=== PATIENT | female | born 1990 | race Caucasian/White ===

== ENCOUNTER 2021-06-03 13:38 | Outpatient (REF) | payer SELFPAY ==
[2021-06-03 14:18] LABS: COVID-19 Test Positive (Negative); IDNOW Serial# 55D5AD1C
== END 2021-06-03 13:39 | disposition home or self-care (01) ==
LOC: HO.LAB 13:38
PROVIDERS: Visit Provider Internal Medicine
DX: Z20.822 Contact with and (suspected) exposure to COVID-19 (principal)
CPT/HCPCS: 36415; 87635; C9803

== ENCOUNTER 2023-01-02 18:30 | Emergency (ER) | payer OTHER, SELFPAY ==
[2023-01-02 19:10] VITALS: BP 118/62; PULSE 71; RESP 16; TEMP 36.7; BMI 20.2
--- NOTE | 2023-01-02 19:11 | ED_ITS ---
HPI - General Adult General Chief complaint: General Medical Stated complaint: blood in urination/ chest pain/ SOB/ Back pain Time Seen by Provider: 01/03/23 03:02 Source: patient Mode of arrival: ambulatory Limitations: no limitations History of Present Illness HPI narrative: Patient complaining of diffuse lower abdominal pain vaginal pain clear discharge had only 1 day menses Last month checked the was negative complaining of nausea no vomiting no fever Related Data Previous Rx's Medication Instructions Recorded ondansetron 4 mg disintegrating 4 mg PO Q6-8H PRN nausea and 01/03/23 tablet vomiting #7 tabs Allergies Allergy/AdvReac Type Severity Reaction Status Date / Time No Known Allergies Allergy Unverified 02/16/20 18:02 [No Known Allergies*] Review of Systems Review of Systems: Yes all other systems are reviewed and are negative [facility] Social History Social History Advance Directives: No Advance Directives Information Provided: No Physical Exam ED Vital Signs: Vital Signs - 24 hr 01/02/23 19:10 Temperature 98.1 F Pulse Rate 71 Respiratory Rate 16 Blood Pressure 118/62 BMI result Body Mass Index 20.2 Appearance: Alert. Oriented X3. No acute distress. ENT: Pharynx normal. Oral Mucosa moist Neck: Normal inspection. Neck supple. CVS: Normal heart rate and rhythm. Pulses normal. Respiratory: No respiratory distress. Equal air entry bilateral, no wheezing/rales/rhonchi Abdomen: Soft , mild suprapubic tenderness no rebound tenderness or guarding Bowel sounds are present, no mass palpable, no CVA tenderness Skin: Skin warm and dry. Normal skin color. Normal skin turgor. Extremities: No lower extremity edema. No calf tenderness Neuro: Oriented X 3. No motor deficit. Course Course Course Narrative: This is a rapid medical exam: Additional HPI, ROS, PE not included below will be deferred to primary provider. Patient is a 32-year-old [place]ene[place]in-speaking female presenting to the emergency department with complaint of lower abdominal pain, called [facility], states period only lasted one day this month, also complains of back pain. She also reports shortness of breath, rapid heart rate, and dizziness. [facility] referred her to the ED. Noted hematuria 2-3 days ago. Denies fevers. Re ports this am reports blood-tinged yellow vaginal discharge. Took a test at home which was negative, denies recent unprotected sex. Plan: UA, labs Medications Administered Discontinued Medications Generic Name Dose Route Start Last Admin Trade Name Erick PRN Reason Stop Dose Admin Ondansetron HCl 4 mg 01/03/23 03:13 01/03/23 03:21 Ondansetron Odt 4 Mg Tab.Guillermo SAUCEDAU 01/03/23 03:14 4 mg ONCE ONE Administration Medical Decision Making Medical Decision Making [facility] Narrative: Patient's negative nonspecific pain labs stable discharge patient home ibuprofen for pain and Zofran for nausea Lab Data [facility] Lab Attestation statement: I reviewed the patient's lab results. 01/02/23 21:16 01/02/23 21:16 Labs: Lab Results 01/02/23 01/02/23 01/03/23 Range/Units 21:16 21:16 02:41 WBC 6.5 (4.8-10.8) X10*3/uL RBC 4.34 (4.20-5.50) X10*6/uL Hgb 13.2 (12.0-16.0) g/dl Hct 38.8 (37.0-47.0) % MCV 89.4 (80.0-98.0) fL MCH 30.4 (27.0-33.0) pg MCHC 34.0 (31.0-35.0) g/dl RDW 12.0 (11.0-16.0) % Plt Count 237 (160-400) X10*3/uL MPV 9.4 (9.4-12.3) fL Immature Gran % (Auto) 0.2 (0.0-0.4) % Neut % (Auto) 46.3 (45-73) % Lymph % (Auto) 44.0 H (20-40) % [place] % (Auto) 7.1 (2-11) % Eos % (Auto) 1.5 (0-4) % Baso % (Auto) 0.9 (0-2) % Lymph # (Auto) 2.9 (1.2-4.9) X10*3/uL [place] # (Auto) 0.5 (0.1-1.2) X10*3/uL Eos # (Auto) 0.1 (0.0-0.4) X10*3/uL Baso # (Auto) 0.1 (0.0-0.2) X10*3/uL Abs Immat Gran (auto) 0.01 (0.00-0.03) X10*3/uL Absolute Neuts (auto) 3.0 (2.0-8.3) x10*3/uL Absolute Nucleated RBC 0.000 (0.0-0.012) X10*3/uL Nucleated RBC % (auto) 0.0 (0.0-0.2) /100WBC Sodium 139 (135-145) mmol/L Potassium 3.9 (3.3-5.1) mmol/L Chloride 106 (96-108) mmol/L Carbon Dioxide 25 (22-29) mmol/L Anion Gap 12 (12-20) BUN 10 (9-16) mg/dL Creatinine 0.69 (0.5-1.4) mg/dL Estim Creat Clear Calc 89.9 Estimated GFR > 60 Random Glucose 89 (60-115) mg/dL Calcium 9.5 (8.4-10.2) mg/dL Total Bilirubin 0.3 (0.0-1.0) mg/dL AST 17 (5-31) U/L ALT 12 (0-31) U/L Alkaline Phosphatase 55 (39-117) U/L Total Protein 6.9 (6.5-8.0) g/dL Albumin 4.2 (3.5-5.0) g/dL Beta HCG, Quant < 2 mIU/mL Urine Color Yellow Urine Appearance Clear Urine pH 6.0 (5.0-9.0) Ur Specific [place] 1.020 (1.005-1.025) Urine Protein Negative (Neg-Trace) mg/dL Urine Glucose (UA) Negative (Negative) mg/dL Urine Ketones Negative (Negative) mg/dL Urine Blood Negative (Negative) Urine Nitrite Negative (Negative) Ur Leukocyte Esterase Negative (Negative) Discharge Plan Discharge Clinical Impression: Abdominal pain Patient Disposition: Home, Self-Care Instructions: Abdominal Pain (ED) Additional Instructions: Your blood is negative for Meds for nausea as prescribed Prescriptions: New ondansetron 4 mg tablet,disintegrating 4 mg PO Q6-8H PRN (Reason: nausea and vomiting) Qty: 7 0RF Interventions: ED Discharge Assessment Last Done: 01/03/23 04:28 Discharge Date/Time: 01/03/23 04:28
[2023-01-02 21:21] LABS: MANUAL DIFF FLAG NO
[2023-01-02 21:32] LABS: Basophils Absolute Auto 0.1 X10*3/uL (0.0-0.2); Basophils Percent Auto 0.9 % (0-2); Eosinophils Absolute Auto 0.1 X10*3/uL (0.0-0.4); Eosinophils Percent Auto 1.5 % (0-4); Hematocrit 38.8 % (37.0-47.0); Hemoglobin 13.2 g/dl (12.0-16.0); Imm Gran Abs Auto 0.01 X10*3/uL (0.00-0.03); Imm Gran Pct Auto 0.2 % (0.0-0.4); Lymphocytes Absolute Auto 2.9 X10*3/uL (1.2-4.9); Mean Corpuscular Hemoglobin 30.4 pg (27.0-33.0); Mean Corpuscular Volume 89.4 fL (80.0-98.0); Mean Platelet Volume 9.4 fL (9.4-12.3); Monocytes Absolute Auto 0.5 X10*3/uL (0.1-1.2); Monocytes Percent Auto 7.1 % (2-11); Neutrophils Percent Auto 46.3 % (45-73); Platelet Count 237 X10*3/uL (160-400); Red Blood Count 4.34 X10*6/uL (4.20-5.50); White Blood Count 6.5 X10*3/uL (4.8-10.8)
[2023-01-02 21:47] LABS: Alanine Aminotransferase 12 U/L (0-31); Albumin Level 4.2 g/dL (3.5-5.0); Alkaline Phosphatase 55 U/L (39-117); Anion Gap 12 (12-20); Bilirubin Total 0.3 mg/dL (0.0-1.0); Blood Urea Nitrogen 10 mg/dL (9-16); Calcium 9.5 mg/dL (8.4-10.2); Carbon Dioxide 25 mmol/L (22-29); Chloride 106 mmol/L (96-108); Creatinine Clr Calc Pharmacy 89.9; Estimated Glomerular Filt Rate > 60; Glucose Random 89 mg/dL (60-115); Potassium 3.9 mmol/L (3.3-5.1); Sodium 139 mmol/L (135-145); Total Protein 6.9 g/dL (6.5-8.0)
[2023-01-02 21:50] LABS: HCG Quantitative < 2 mIU/mL
[2023-01-02 22:08] LABS: Aspartate Amino Transferase 17 U/L (5-31)
[2023-01-03] MEDS: Ondansetron ODT 4 MG TAB.RAPDIS TRANSLINGU (03:21)
[2023-01-03 03:22] LABS: Appearance Urine Clear; Color Urine Yellow; Glucose Urine UA Negative (Negative); Leukocyte Esterase Urine Negative (Negative); Nitrite Urine Negative (Negative); Urine Blood Negative (Negative); Urine Ketones Negative (Negative); Urine Protein Negative (Neg-Trace)
== END 2023-01-03 04:28 | disposition home or self-care (01) ==
PROVIDERS: Registered Nurse Emergency; Emergency Provider Internal Medicine
DX: R10.30 Lower abdominal pain, unspecified (principal); R11.0 Nausea
CPT/HCPCS: 36415; 80053; 81003; 84702; 85025; 99282; 99283

== ENCOUNTER 2023-03-18 03:27 | Emergency (ER) | payer OTHER, SELFPAY ==
--- NOTE | ~2023-03-18 | XR_ITS ---
EXAMINATION: XR CHEST CLINICAL INFORMATION: Cough, chest pain, shortness of breath COMPARISON: 12/28/2013 TECHNIQUE: Frontal view of the chest was obtained. FINDINGS: The lungs are clear with no focal consolidation. No evidence of pneumothorax, pulmonary edema, or pleural effusions. The cardiomediastinal silhouette is unremarkable. No acute osseous findings. XR/XR chest 1V IMPRESSION: No acute cardiopulmonary findings.
[2023-03-18 03:39] VITALS: BP 118/56; PULSE 77; RESP 18; TEMP 36.6; O2SAT 100; BMI 20.8
[2023-03-18 04:09] LABS: COVID-19 Test Negative (Negative); IDNOW Serial# 08D9AD1C; IDNOW Serial# BCCEAD1C; Influenza A Negative (Negative); Influenza B2 Negative (Negative)
[2023-03-18 06:14] VITALS: BP 106/50; PULSE 64; RESP 18; TEMP 36.9; O2SAT 98
--- NOTE | 2023-03-18 06:25 | ED_ITS ---
HPI - General Adult General Chief complaint: Upper Respiratory Symptoms Stated complaint: Flu Like symptoms, trouble breathing Time Seen by Provider: 03/18/23 06:24 Source: patient Mode of arrival: ambulatory Limitations: no limitations History of Present Illness HPI narrative: Patient is a 33-year-old female presenting to the emergency department with complaint of nonproductive cough, nasal congestion, fever with T-max of 102?, headache, sore throat since Thursday. States that she use her inhaler frequently yesterday. Reports intermittent chest pains overnight which she feels was related to her cough. Has used [id number] cold medicine with little relief. Last took Tylenol at 3:00 a.m.. Denies any abdominal pain. Denies any dysuria, frequency or other urinary symptoms. Denies current chest pain. Reports headache has been moderate and intermittent. Denies headache worst at onset or worst headache of life. Denies any visual changes. complaint: Fever, shortness of breath Onset (ago): day(s) Location: chest Radiation: non-radiation Severity: moderate Quality: aching Pain Consistency: intermittent Relieving factors: none Exacerbating factors: none Associated symptoms: cough, fever/chills and headaches Treatments prior to arrival: cold therapy and other (Tylenol) Related Data Previous Rx's Medication Instructions Recorded ondansetron 4 mg disintegrating 4 mg PO Q6-8H PRN nausea and 01/03/23 tablet vomiting #7 tabs Allergies Allergy/AdvReac Type Severity Reaction Status Date / Time No Known Allergies Allergy Verified 03/18/23 03:43 [No Known Allergies*] Review of Systems 2 Review of Systems: As per HPI. Yes all other systems are reviewed and are negative Constitutional: Constitutional: Reports as per HPI [facility] Social History Social History Advance Directives: No Advance Directives Information Provided: No Physical Exam ED Vital Signs: Vital Signs - 24 hr 03/18/23 03:39 03/18/23 06:14 Temperature 97.8 F 98.5 F Pulse Rate 77 64 Respiratory Rate 18 18 Blood Pressure 118/56 L 106/50 L Pulse Oximetry 100 98 Oxygen Delivery Method Room Air Room Air BMI result Body Mass Index 20.8 Vital signs have been reviewed and appear to be correct. Blood pressure normal. Heart rate normal. Respiratory rate normal. Temperature normal. Oxygen saturation normal. Const General: cooperative, healthy appearing and no acute distress Orientation/consciousness: oriented to person, oriented to place, oriented to time and patient oriented x3 Limitations: no limitations HENMT Head: Yes normocephalic and Yes atraumatic Ears: external ears normal, TM's normal bilaterally and EAC's normal General nose exam: Normal external nose present, Normal nasal mucous membranes and turbinates present and Normal septum present Face and sinus: Yes sinuses nontender and Yes face symmetric Mouth: oropharynx normal and moist mucous membranes Throat: Yes uvula midline and Yes posterior oropharynx abnormal (Erythema, edema, no exudate) Eyes Pupils: Equal, round and reactive pupils present Neck Neck: Yes normal visual inspection and Yes supple Lymphatic: no lymphadenopathy noted Resp Effort & Inspection: normal respiratory effort and able to speak in complete sentences Auscultation: clear to auscultation bilaterally Cardio Rate: regular rate Rhythm: regular rhythm Heart sounds: S1 normal heart sound present and S2 normal heart sound present GI Palpation (GI): Soft to palpation and nontender Auscultation: normoactive bowel sounds General: Yes no CVA tenderness Back/Spine/Pelvis Back: no CVA tenderness Skin General skin exam: elasticity normal and turgor normal Neuro General: oriented to person, oriented to place, oriented to time, patient oriented x3, moves all extremities, no focal motor deficits and CN's II-XI intact bilaterally Cranial nerves: Yes Equal, round and reactive pupils present Cognition (Neuro): normal cognition Extrem General: Yes full ROM, Yes no pedal edema and Yes no calf tenderness Psych Mental Status: mental status grossly normal Affect: normal affect Thought process: Normal thought process present Medical Decision Making Medical Decision Making MDM Narrative: Patient is a 33-year-old female presenting to the emergency department with complaint of nonproductive cough, nasal congestion, fever with T-max of 102?, headache, sore throat since Thursday. On exam patient is awake, A+Ox3, VS WNL, afebrile, nontoxic-appearing, normal neurological exam without focal deficits, physical exam findings as above. Given reported symptoms and physical exam findings, initial differential includes viral illness, COVID, flu, strep pharyngitis, bronchitis, pneumonia. Feel ACS less likely but will obtain EKG and troponin. Swabs for flu and COVID both negative. X-ray chest notable for no acute abnormalities. My interpretation is in agreement with the radiologist's interpretation. Will check for strep, obtain EKG, troponin, basic labs and reassess. Labs unremarkable, troponin negative, strep negative. All results discussed with patient and all questions answered. Discussed with patient that symptoms are likely related to viral illness. Advised patient to ensure adequate rest, adequate fluid intake, can use [id number] decongestants as well as nasal saline spray. Return precautions discussed at bedside. Patient instructed follow-up with primary care provider. Patient verbalized understanding of and agreement with plan. Differential Diagnosis Differential Diagnoses: The differential diagnosis associated with the presentation includes As per [facility]. Admission/Observation Consideration of admission/observation: Escalation of care including admission/observation considered Given complaint of chest pain considered admission for possible ACS Lab Data [facility] Lab Attestation statement: I reviewed the patient's lab results. As per MDM. 03/18/23 06:59 03/18/23 06:59 Labs: Lab Results 03/18/23 03/18/23 03/18/23 Range/Units 03:46 06:59 07:04 WBC 7.1 (4.8-10.8) X10*3/uL RBC 4.41 (4.20-5.50) X10*6/uL Hgb 13.0 (12.0-16.0) g/dl Hct 38.9 (37.0-47.0) % MCV 88.2 (80.0-98.0) fL MCH 29.5 (27.0-33.0) pg MCHC 33.4 (31.0-35.0) g/dl RDW 12.5 (11.0-16.0) % Plt Count 241 (160-400) X10*3/uL MPV 9.3 L (9.4-12.3) fL Immature Gran % (Auto) 0.3 (0.0-0.4) % Neut % (Auto) 69.5 (45-73) % Lymph % (Auto) 20.4 (20-40) % [place] % (Auto) 7.6 (2-11) % Eos % (Auto) 1.6 (0-4) % Baso % (Auto) 0.6 (0-2) % Lymph # (Auto) 1.4 (1.2-4.9) X10*3/uL [place] # (Auto) 0.5 (0.1-1.2) X10*3/uL Eos # (Auto) 0.1 (0.0-0.4) X10*3/uL Baso # (Auto) 0.0 (0.0-0.2) X10*3/uL Abs Immat Gran (auto) 0.02 (0.00-0.03) X10*3/uL Absolute Neuts (auto) 4.9 (2.0-8.3) x10*3/uL Absolute Nucleated RBC 0.000 (0.0-0.012) X10*3/uL Nucleated RBC % (auto) 0.0 (0.0-0.2) /100WBC Sodium 137 (135-145) mmol/L Potassium 4.4 (3.3-5.1) mmol/L Chloride 104 (96-108) mmol/L Carbon Dioxide 24 (22-29) mmol/L Anion Gap 13 (12-20) BUN 13 (9-16) mg/dL Creatinine 0.67 (0.5-1.4) mg/dL Estim Creat Clear Calc 91.8 Estimated GFR > 60 Random Glucose 80 (60-115) mg/dL Calcium 9.6 (8.4-10.2) mg/dL Troponin I High Sens < 2.7 (<3.5-17.0) ng/L COVID-19 (SAUL) Negative (Negative) COVID-19 Clin Com See Note Influenza Type A (DHRUV) Negative (Negative) Influenza Type B (DHRUV) Negative (Negative) Influenza A & B Note See Note S. pyogenes GrpA DHRUV Negative (Negative) Independent Interpretation I performed an independent interpretation of an: EKG and Plain X-Ray Interpretation: EKG: Normal sinus rhythm, rate 78 bpm, normal OR interval, no evidence of STEMI No acute abnormalities on CXR Radiology Impression Discussion of test interpretation with radiology: I have reviewed the radiologist's reading. Radiologist Impression: XR/XR chest 1V IMPRESSION: No acute cardiopulmonary findings. External Record Review External record reviewed: Inpatient record, Office record and Outpatient record Discharge Plan Discharge Clinical Impression: Viral upper respiratory infection Patient Disposition: Home, Self-Care Instructions: Upper Respiratory Infection (DC), Viral Syndrome (ED) Additional Instructions: You were evaluated in the emergency department today for sore throat, nasal congestion and cough. Your Covid, flu, and strep tests were all negative. Your labs were reassuring. Your symptoms are likely related to a viral illness which will resolve on its own with time and rest. You should ensure adequate fluid intake, and can use Tylenol 650 mg or ibuprofen 600 mg every 6 hours as needed for fever or discomfort. Please follow-up with your primary care provider this week. Return to the emergency department if you develop chest pain, worsening shortness of breath, difficulty swallowing, fever 100.4? F or greater or any other concerning symptoms. Prescriptions: No Action ondansetron 4 mg tablet,disintegrating 4 mg PO Q6-8H PRN (Reason: nausea and vomiting) Qty: 7 0RF
--- NOTE | 2023-03-18 06:27 | ECG_ITS ---
Test Reason : CHEST PAIN Blood Pressure : / mmHG Vent. Rate : 078 BPM Atrial Rate : 078 BPM P-R Int : 152 ms QRS Dur : 072 ms QT Int : 402 ms P-R-T Axes : 068 080 051 degrees QTc Int : 458 ms Normal sinus rhythm with sinus arrhythmia RSR' or QR pattern in V1 suggests right ventricular conduction delay Nonspecific T wave abnormality Borderline ECG When compared with ECG of 28-DEC-2013 10:09, No significant change was found Referred By: Lanette Collins Electronically Signed By:ABELARDO CHAUHAN MD
[2023-03-18 07:08] LABS: MANUAL DIFF FLAG NO
[2023-03-18 07:09] LABS: Basophils Percent Auto 0.6 % (0-2); Eosinophils Absolute Auto 0.1 X10*3/uL (0.0-0.4); Eosinophils Percent Auto 1.6 % (0-4); Hematocrit 38.9 % (37.0-47.0); Imm Gran Abs Auto 0.02 X10*3/uL (0.00-0.03); Imm Gran Pct Auto 0.3 % (0.0-0.4); Lymphocytes Absolute Auto 1.4 X10*3/uL (1.2-4.9); Lymphocytes Percent Auto 20.4 % (20-40); Mean Corpuscular HGB Conc 33.4 g/dl (31.0-35.0); Mean Corpuscular Hemoglobin 29.5 pg (27.0-33.0); Mean Corpuscular Volume 88.2 fL (80.0-98.0); Mean Platelet Volume 9.3 fL (9.4-12.3); Monocytes Absolute Auto 0.5 X10*3/uL (0.1-1.2); Monocytes Percent Auto 7.6 % (2-11); Neutrophils Absolute Auto 4.9 x10*3/uL (2.0-8.3); Neutrophils Percent Auto 69.5 % (45-73); Platelet Count 241 X10*3/uL (160-400); Red Blood Count 4.41 X10*6/uL (4.20-5.50); Red Cell Distribution Width 12.5 % (11.0-16.0); White Blood Count 7.1 X10*3/uL (4.8-10.8)
[2023-03-18 07:20] LABS: Anion Gap 13 (12-20); Blood Urea Nitrogen 13 mg/dL (9-16); Calcium 9.6 mg/dL (8.4-10.2); Carbon Dioxide 24 mmol/L (22-29); Chloride 104 mmol/L (96-108); Creatinine Clr Calc Pharmacy 91.8; Estimated Glomerular Filt Rate > 60; Glucose Random 80 mg/dL (60-115); Potassium 4.4 mmol/L (3.3-5.1); Sodium 137 mmol/L (135-145)
[2023-03-18 07:26] LABS: IDNOW Serial# 08D9AD1C; Strep A Nucleic Acid Negative (Negative)
[2023-03-18 07:29] LABS: Troponin-I High Sensitivity < 2.7 ng/L (<3.5-17.0)
== END 2023-03-18 08:38 | disposition home or self-care (01) ==
PROVIDERS: Registered Nurse Emergency; Emergency Provider Emergency Medicine Emergency Medical Services; PCP Internal Medicine
DX: B34.9 Viral infection, unspecified (principal); R05.9 Cough, unspecified; R50.9 Fever, unspecified; R06.02 Shortness of breath; Z11.52 Encounter for screening for COVID-19; Z20.822 Contact with and (suspected) exposure to COVID-19; Z79.899 Other long term (current) drug therapy
CPT/HCPCS: 71045; 80048; 84484; 85025; 87502; 87635; 87651; 93005; 99283; 99284

== ENCOUNTER 2024-06-27 10:30 | Emergency (ER) | payer OTHER, SELFPAY ==
--- NOTE | ~2024-06-27 | XR_ITS ---
EXAMINATION: XR CHEST CLINICAL INFORMATION: shortness of breath / chest pain COMPARISON: 03/08/2023. TECHNIQUE: 2 views of the chest were obtained. FINDINGS: The cardiac, hilar, and mediastinal contours are normal. The lungs are clear bilaterally. There is no pneumothorax or pleural effusion. There is a granuloma in the lateral right middle lobe. There is no focal osseous or soft tissue abnormality. XR/XR chest 2V IMPRESSION: No active pulmonary disease. Electronically signed by: Geoffrey Michel MD 06/27/2024 12:24 PM [facility]
[2024-06-27 11:16] VITALS: BP 129/77; PULSE 110; RESP 16; TEMP 36.8; O2SAT 100; BMI 20.8
--- NOTE | 2024-06-27 11:16 | ED_ITS ---
HPI - General Adult General Chief complaint: Upper Respiratory Symptoms Stated complaint: cant't breath Time Seen by Provider: 06/27/24 13:30 Source: patient Mode of arrival: ambulatory Limitations: no limitations History of Present Illness ED Provider: Pam Adan PA-C HPI narrative: Patient is a 34 year old assigned female at with no reported medical history presenting to the emergency department today with a cough, fever, shortness of breath, and chest pain. Patient states that over the last 2 weeks she has had a cough, fever, chills, shortness of breath, and chest pain. Patient denies any dizziness, lightheadedness, abdominal pain, nausea, vomiting, blurry vision, double vision, loss of vision, back pain, night sweats, pain with urination, increased urinary frequency, increased urinary urgency, blood in her urine or stool, syncope or a near syncopal episode, recent trauma or falls, bowel incontinence, bladder incontinence, or any other complaints at this time. Onset (ago): week(s) (2) Relieving factors: none Exacerbating factors: none Associated symptoms: chest pain, cough, fever/chills and shortness of breath Treatments prior to arrival: none Related Data Previous Rx's ?Medication ?Instructions ?Recorded ondansetron 4 mg disintegrating 4 mg PO Q6-8H PRN nausea and 01/03/23 tablet vomiting #7 tabs Allergies Allergy/AdvReac Type Severity Reaction Status Date / Time No Known Allergies Allergy Verified 06/27/24 11:16 [No Known Allergies*] Review of Systems 2 Constitutional: Constitutional: Reports no additional constitutional complaints, Reports chills, Reports fever(s) and Denies night sweats Eyes: Eyes: Reports no additional eye complaints, Denies blurry vision, Denies change in vision, Denies diplopia, Denies eye discharge, Denies loss of vision and Denies eye pain ENT: Denies dizziness Cardiovascular: Cardiovascular: Reports no additional cardiovascular complaints, Reports chest pain, Denies lightheadedness, Denies Loss of Consciousness and Reports dyspnea Respiratory: Respiratory: Reports no additional respiratory complaints, Reports cough and Reports dyspnea Gastrointestinal: Gastrointestinal: Reports no additional gastrointestinal complaints, Denies abdominal pain, Denies melena, Denies hematochezia, Denies change in bowel habits and Denies change in stool character Genitourinary: Genitourinary: Denies hematuria, Denies urinary frequency, Denies dysuria, Denies urinary incontinence, Denies urinary hesitancy and Denies urinary urgency Musculoskeletal: Musculoskeletal: Reports no additional musculoskeletal complaints, Denies numbness and Denies tingling Neurologic: Denies dizziness, Denies loss of vision, Denies numbness and Denies tingling Psychiatric: Psychiatric: Reports no additional psychiatric complaints Endocrine: Endocrine: Reports no additional endocrine complaints Hematologic/Lymphatic: Hematologic/Lymphatic: Reports no additional hematologic/lymphatic complaints Allergic/Immunologic: Allergic/Immunologic: Reports no additional allergic/immunologic complaints PMFSH Past Medical History Attestation statement: The following information was validated with the patient. Source: old records reviewed and nursing notes reviewed Social History Social History Advance Directives: No Advance Directives Information Provided: Yes Do you have a plan to hurt others: No Plan Physical Exam ED Vital Signs: Vital Signs - 24 hr 06/27/24 11:16 Temperature 98.3 F Pulse Rate 110 H Respiratory Rate 16 Blood Pressure 129/77 Pulse Oximetry 100 Oxygen Delivery Method Room Air BMI result Body Mass Index 20.8 Const General: cooperative, no acute distress, alert and awake Nutritional Appearance: well nourished Orientation/consciousness: patient oriented x3 Limitations: no limitations HENMT Head: Yes normal to inspection and Yes atraumatic Ears: hearing grossly normal bilaterally and external ears normal General nose exam: Normal external nose present, no nasal discharge noted and no epistaxis Face and sinus: Yes normal facial exam, No abrasion and No laceration Mouth: Normal oral and palatal mucosa present, no drooling and no muffled voice Eyes General: appearance normal, both eyes and all related structures Periorbital: periorbital findings normal Eyelids: Yes eyelids normal Conjunctivae: conjunctivae normal Pupils: Equal, round and reactive pupils present EOM: EOMs intact bilaterally Neck Neck: Yes normal visual inspection, Yes full ROM and Yes no lymphadenopathy Chest Chest palpation & inspection: normal inspection of the chest Resp Effort & Inspection: normal respiratory effort and able to speak in complete sentences GI Inspection: Yes normal to inspection Neuro General: patient oriented x3 and moves all extremities Cranial nerves: Yes Equal, round and reactive pupils present Cognition (Neuro): normal cognition Extrem General: Yes normal to inspection, Yes full ROM and Yes capillary refill normal Psych Appearance: grossly normal Mental Status: mental status grossly normal Affect: normal affect Attitude: cooperative Thought process: Normal thought process present Thought content: Normal thought content present Insight: Good insight present (Psych) Course Course Course Narrative: RME performed by Pam Adan PA-C. Patient is a 34 year old assigned female at presenting to the emergency department with a cough, chest pain, and feeling generally unwell over the last 2 weeks. Detailed physical exam and review of systems are deferred to the ditch inspector. EKG, labs, imaging, and swabs ordered. Patient placed back in the waiting room pending room availability and results. Medical Decision Making Medical Decision Making MDM Narrative: Patient is a 34 year old assigned female at with no reported medical history presenting to the emergency department today with a cough, fever, shortness of breath, and chest pain. Patient's physical exam was unremarkable. Patient's blood work was unremarkable. Patient's EKG was unremarkable. Patient's chest x-ray showed no acute process. I explained my physical exam findings as well as all test results to the patient. I answered all questions asked by the patient. I stressed the importance of the patient taking her medication as directed (either prescribed or as the over the counter packaging recommends). I stressed the importance of the patient following up with her primary care provider. I stressed the importance of the patient returning to the emergency department immediately if her symptoms were to worsen or if she were to develop any dizziness, shortness of breath, difficulty breathing, chest pain, blurry vision, loss of vision, nausea, vomiting, abdominal pain, fever, chills, back pain, or any other complaints. Patient verbalized agreement and understanding with this treatment plan and discharge. Differential Diagnosis Differential Diagnoses: The differential diagnosis associated with the presentation includes Influenza Cough Viral illness Chest pain Atypical chest pain Admission/Observation Consideration of admission/observation: Escalation of care including admission/observation considered Patient would have been admitted to the hospital had her work up had any findings where hospital admission was appropriate and her clinical presentation warranted hospital admission. Lab Data [facility] Lab Attestation statement: I reviewed the patient's lab results. My interpretation of these results are in the [facility] Rationale portion of this note. 06/27/24 11:56 06/27/24 11:56 Labs: Lab Results 06/27/24 Range/Units 11:56 WBC 4.2 L (4.8-10.8) X10*3/uL RBC 4.83 (4.20-5.50) X10*6/uL Hgb 14.3 (12.0-16.0) g/dl Hct 42.8 (37.0-47.0) % MCV 88.6 (80.0-98.0) fL MCH 29.6 (27.0-33.0) pg MCHC 33.4 (31.0-35.0) g/dl RDW 13.1 (11.0-16.0) % Plt Count 192 (160-400) X10*3/uL MPV 9.3 L (9.4-12.3) fL Immature Gran % (Auto) 0.2 (0.0-0.4) % Neut % (Auto) 57.3 (45-73) % Lymph % (Auto) 29.3 (20-40) % [place] % (Auto) 12.7 H (2-11) % Eos % (Auto) 0.0 (0-4) % Baso % (Auto) 0.5 (0-2) % Lymph # (Auto) 1.2 (1.2-4.9) X10*3/uL [place] # (Auto) 0.5 (0.1-1.2) X10*3/uL Eos # (Auto) 0.0 (0.0-0.4) X10*3/uL Baso # (Auto) 0.0 (0.0-0.2) X10*3/uL Abs Immat Gran (auto) 0.01 (0.00-0.03) X10*3/uL Absolute Neuts (auto) 2.4 (2.0-8.3) x10*3/uL Absolute Nucleated RBC 0.000 (0.0-0.012) X10*3/uL Nucleated RBC % (auto) 0.0 (0.0-0.2) /100WBC Sodium 139 (135-145) mmol/L Potassium 3.5 (3.3-5.1) mmol/L Chloride 105 (96-108) mmol/L Carbon Dioxide 27 (22-29) mmol/L Anion Gap 11 L (12-20) BUN 9 (9-16) mg/dL Creatinine 0.70 (0.5-1.4) mg/dL Estim Creat Clear Calc 87.0 Estimated GFR > 60 Random Glucose 105 (60-115) mg/dL Calcium 8.5 D (8.4-10.2) mg/dL Magnesium 1.9 (1.6-2.6) mg/dL Total Bilirubin 0.1 (0.0-1.0) mg/dL AST 42 H (5-31) U/L ALT 23 (0-31) U/L Alkaline Phosphatase 65 (39-117) U/L Troponin I High Sens < 2.7 (<3.5-17.0) ng/L Total Protein 7.7 (6.5-8.0) g/dL Albumin 4.3 (3.5-5.0) g/dL Influenza Type A (PCR) POSITIVE A (Negative) Influenza Type B (PCR) NEGATIVE (Negative) RSV RNA Qual (PCR) NEGATIVE (Negative) SARS-CoV-2 RNA (RT-PCR) NEGATIVE (Negative) Independent Interpretation I performed an independent interpretation of an: EKG and Plain X-Ray Interpretation: My interpretation is in agreement with the radiologist's impression of this imaging study. L EXAMINATION: XR CHEST CLINICAL INFORMATION: shortness of breath / chest pain COMPARISON: 03/08/2023. TECHNIQUE: 2 views of the chest were obtained. FINDINGS: The cardiac, hilar, and mediastinal contours are normal. The lungs are clear bilaterally. There is no pneumothorax or pleural effusion. There is a granuloma in the lateral right middle lobe. There is no focal osseous or soft tissue abnormality. XR/XR chest 2V IMPRESSION: No active pulmonary disease. Electronically signed by: Geoffrey Michel MD 06/27/2024 12:[address] [facility] Dictated By: Geoffrey Michel MD Signed By: Electronically signed by Geoffrey Michel MD 06/27/24 1224 Vent. Rate: 104 BPM Atrial Rate: 104 BPM P-R Int: 160 ms QRS Dur: 74 ms QT Int: 318 ms P-R-T Axes: 70 82 43 degrees QTcB Int: 418 ms Sinus tachycardia Otherwise normal ECG When compared with ECG of 18-Mar-2023 06:43, No significant change was found DD/ 1150 Radiology Impression Discussion of test interpretation with radiology: I have reviewed the radiologist's reading. Discharge Plan Discharge Clinical Impression: Influenza Patient Disposition: Home, Self-Care Instructions: Influenza (DC) Additional Instructions: Follow up with your primary care provider. Return to the emergency department immediately if your symptoms worsen or if you develop any dizziness, shortness of breath, difficulty breathing, chest pain, blurry vision, loss of vision, nausea, vomiting, abdominal pain, fever, chills, back pain, or any other complaints. Prescriptions: No Action ondansetron 4 mg tablet,disintegrating 4 mg PO Q6-8H PRN (Reason: nausea and vomiting) Qty: 7 0RF Referrals: Luis Guzman III, MD [Primary Care Provider] - Stand Alone Forms: Work/School Release Discharge Date/Time: 06/27/24 13:31 Print Language: Icelandic
--- NOTE | 2024-06-27 11:17 | ECG_ITS ---
Test Reason : SOB/CP Blood Pressure : */* mmHG Vent. Rate : 104 BPM Atrial Rate : 104 BPM P-R Int : 160 ms QRS Dur : 74 ms QT Int : 318 ms P-R-T Axes : 70 82 43 degrees QTcB Int : 418 ms Sinus tachycardia Nonspecific ST and T wave abnormality Borderline ECG When compared with ECG of 18-Mar-2023 06:43, No significant change was found Referred By: Pam Adan Electronically Signed By: CARLOS DUBOSE
[2024-06-27 12:00] LABS: MANUAL DIFF FLAG NO
[2024-06-27 12:03] LABS: Basophils Percent Auto 0.5 % (0-2); Hematocrit 42.8 % (37.0-47.0); Hemoglobin 14.3 g/dl (12.0-16.0); Imm Gran Abs Auto 0.01 X10*3/uL (0.00-0.03); Imm Gran Pct Auto 0.2 % (0.0-0.4); Lymphocytes Absolute Auto 1.2 X10*3/uL (1.2-4.9); Lymphocytes Percent Auto 29.3 % (20-40); Mean Corpuscular HGB Conc 33.4 g/dl (31.0-35.0); Mean Corpuscular Hemoglobin 29.6 pg (27.0-33.0); Mean Corpuscular Volume 88.6 fL (80.0-98.0); Mean Platelet Volume 9.3 fL (9.4-12.3); Monocytes Absolute Auto 0.5 X10*3/uL (0.1-1.2); Monocytes Percent Auto 12.7 % (2-11); Neutrophils Absolute Auto 2.4 x10*3/uL (2.0-8.3); Neutrophils Percent Auto 57.3 % (45-73); Platelet Count 192 X10*3/uL (160-400); Red Blood Count 4.83 X10*6/uL (4.20-5.50); Red Cell Distribution Width 13.1 % (11.0-16.0); White Blood Count 4.2 X10*3/uL (4.8-10.8)
[2024-06-27 12:16] LABS: Alanine Aminotransferase 23 U/L (0-31); Albumin Level 4.3 g/dL (3.5-5.0); Alkaline Phosphatase 65 U/L (39-117); Anion Gap 11 (12-20); Aspartate Amino Transferase 42 U/L (5-31); Bilirubin Total 0.1 mg/dL (0.0-1.0); Blood Urea Nitrogen 9 mg/dL (9-16); Calcium 8.5 mg/dL (8.4-10.2); Carbon Dioxide 27 mmol/L (22-29); Chloride 105 mmol/L (96-108); Estimated Glomerular Filt Rate > 60; Glucose Random 105 mg/dL (60-115); Magnesium 1.9 mg/dL (1.6-2.6); Potassium 3.5 mmol/L (3.3-5.1); Sodium 139 mmol/L (135-145); Total Protein 7.7 g/dL (6.5-8.0)
[2024-06-27 12:24] LABS: Troponin-I High Sensitivity < 2.7 ng/L (<3.5-17.0)
[2024-06-27 12:40] LABS: Influenza A PCR POSITIVE (Negative); Influenza B PCR NEGATIVE (Negative); Resp Syncy Virus RNA Qual PCR NEGATIVE (Negative); SARS COV2 PCR INHOUSE NEGATIVE (Negative)
--- OUTSIDE RECORDS SUMMARY | 2024-06-27 16:54 | XMS_ITS | Encounter Summary ---
Author Organization [facility] Address [address] [place] [address] Care Team Providers Care Vineyardist Name Role Phone Luis Guzman MD Primary Care Provider [phone] Reason for Referral * Imaging (Routine) - Pending Review Specialty Diagnoses / Procedures Referred By Contac t Referred To Contact Radiology Diagnoses Swollen lymph nodes Procedures US Extremity Nonvascular Limited Left Deysi Walker CNM [address] [place], [place] [address] Referral ID Status Reason Start Date Expiration Date V isits Requested Visits Authorized [id number] Pending Review 06/10/2024 06/10/2025 1 1 Reason for Visit * Imaging (Routine) - Pending Review Specialty Diagnoses / Procedures Referred By Contac t Referred To Contact Radiology Diagnoses Swollen lymph nodes Procedures US Extremity Nonvascular Limited Left Deysi Walker CNM [address] [place], [place] [address] Referral ID Status Reason Start Date Expiration Date V isits Requested Visits Authorized [id number] Pending Review 06/10/2024 06/10/2025 1 1 Encounter Details Date Type Department Care Team (Latest Contact Info) Description 06/15/2024 4:06 PM EST - 06/15/2024 11:59 PM EST Hospital Encounter Radiology Department - [address] [id number] Swollen lymph nodes Discharge Disposition: Home or Self Care Social History Tobacco Use Types Packs/Day Years Used Date Smoking Tobacco: Never Smokeless Tobacco: Never Alcohol Use Standard Drinks/Week Comments No 0 (1 standard drink = 0.6 oz pur e alcohol) Sex and Gender Information Value Date Recorded Sex Assigned at Not on file Gender Identity Not on file Sexual Orientation Not on file Job Start Date Occupation Industry Not on file Not on file Not on file documented as of this encounter Medications at Time of Discharge Medication Sig Dispensed Refills Start Date End Date fluticasone furoate (Arnuity Ellipta) 100 mcg/actuation blister with device inhaler Inhale 1 puff. 06/03/2023 fluticasone HFA (FLOVENT HFA) 110 mcg/actuation inhaler Inhale 1 puff by mouth. 05/22/2023 ibuprofen (ADVIL,MOTRIN) 800 mg tablet TAKE 1 TABLET BY MOUTH EVERY 8 HOURS NEEDED FOR PAIN 60 tablet 1 06/15/2024 ibuprofen (ADVIL,MOTRIN) 800 mg tablet Take 1 tablet (800 mg total) by mouth every 8 (eight) hours if needed. for pain L. acidophilus/Bifid. animalis (DAILY PROBIOTIC ORAL) Take by mouth. ondansetron ODT (ZOFRAN-ODT) 4 mg disintegrating tablet 01/03/2023 documented as of this encounter Discharge Disposition Disposition Code Departure Means Destination Home or Self Care documented in this encounter Plan of Treatment Upcoming Encounters Date Type Department Care Team (Late st Contact Info) Description 07/26/2024 3:30 PM EST Consult General Surgery - [place] [address] [facility] [address] [place] [id number] Moo Webb, DO [address] [facility] [address] [place] [address] 10/31/2024 2:15 PM EDT Office Visit Pulmonolgy - [place] [address] [facility] [address] [place] [address] Candelaria Sanchez MD [address] [facility] [address] [place] [address] 01/09/2025 2:00 PM EDT Office Visit Adult Medicine [facility] [address] [place] [address] Luis Guzman MD [address] [place] [id number] documented as of this encounter Procedures Procedure Name Priority Date/Time Associated Diagnosis Comments US EXTREMITY NONVASCULAR LIMITED LEFT Routine 06/15/2024 4:11 PM EST Swollen lymph nodes documented in this encounter Results * US Extremity Nonvascular Limited Left (06/15/2024 4:11 PM EST) Anatomical Region Laterality Modality Extremity Left Ultrasound 06/15/2024 4:22 PM EST Narrative 06/15/2024 4:24 PM EST Ultrasound of the soft tissues of the left groin. History lump. Examination was directed by the patient to the area of concern which corresponds to cutaneous cystic nonvascular lesion, measuring 2.2 x 0.3 x 0.7 cm. No other cystic or solid masses or lymphadenopathy identified. CONCLUSIONS: Palpable abnormality corresponds to subcutaneous cystic lesion as detailed. Clinical evaluation is recommended. -------- FINAL REPORT -------- Dictated By: Joi Salinas Dictated Date: 06/15/2024 16:22 ET Assigned Physician: Joi Salinas Reviewed and Electronically Signed By: Joi Salinas Signed Date: 06/15/2024 16:24 ET Workstation ID: [id number] Transcribed By: Self Edit Transcribed Date: 06/15/2024 16:22 ET Procedure Note Joi Salnias MD - 06/15/2024 Ultrasound of the soft tissues of the left groin. History lump. Examination was directed by the patient to the area of concern whichcorresponds to cutaneous cystic nonvascular lesion, measuring 2.2 x 0.3 x0.7 cm. No other cystic or solid masses or lymphadenopathy identified. CONCLUSIONS: Palpable abnormality corresponds to subcutaneous cysticlesion as detailed. Clinical evaluation is recommended. -------- FINAL REPORT -------- Dictated By: Joi Salinas Dictated Date: 06/15/2024 16:22 ET Assigned Physician: Joi Salinas Reviewed and Electronically Signed By: Joi Salinas Signed Date: 06/15/2024 16:24 ET Workstation ID: [id number] Transcribed By: Self Edit Transcribed Date: 06/15/2024 16:22 ET Deysi Walker CNM IMG US PROCEDURES documented in this encounter Visit Diagnoses Diagnosis Swollen lymph nodes Enlargement of lymph nodes documented in this encounter Additional Health Concerns Assessment Noted Time PHQ-9 Depression Total Score: 0 06/10/19 25 7:02 AM EST documented as of this encounter Care Teams Vineyardist Relationship Specialty Start Date End Date Luis Guzman MD [address] [place], [place] [id number] PCP - General Internal Medicine 04/19/24 documented as of this encounter
--- OUTSIDE RECORDS SUMMARY | 2024-06-27 16:54 | XMS_ITS | Encounter Summary ---
Author Organization [facility] Address [address] [place] [address] Care Team Providers Care Agency Legal Counsel Name Role Phone Luis Guzman MD Primary Care Provider [phone] Reason for Referral * Consultation (Routine) - Authorized Specialty Diagnoses / Procedures Referred By Calin t Referred To Contact General Surgery Diagnoses Cyst of skin and subcutaneous tissue Jesus Manuel Michael CNM [address] [place], [place] [facility] General Surgery [address] [address] Referral ID Status Reason Start Date Expiration Date Visits Requested Visits Authorized [id number] Authorized Specialty Services Required 06/17/2024 06/17/2025 1 1 * Imaging (Routine) - Pending Review Specialty Diagnoses / Procedures Referred By Calin schmitt Referred To Contact Radiology Diagnoses Swollen lymph nodes Procedures US Extremity Nonvascular Limited Left Jesus Manuel Michael CNM [address] [place], [place] [address] [place] [address] Referral ID Status Reason Start Date Expiration Date V isits Requested Visits Authorized [id number] Pending Review 06/10/2024 06/10/2025 1 1 Reason for Visit * Reason Comments Consult Encounter Details Date Type Department Care Team (Late st Contact Info) Description 06/10/2024 3:15 PM EST Office Visit Obstetrics and Gynecology - [address] [phone] Jesus Manuel Michael CNM [address] [place], [place] Swollen lymph nodes (Primary Dx); Screen for STD (sexually transmitted disease); Cyst of skin and subcutaneous tissue Social History Tobacco Use Types Packs/Day Years [...] on file documented as of this encounter Last Filed Vital Signs Vital Sign Reading Time Taken Comments Blood Pressure 119/65 06/10/2024 3:25 PM EST Pulse 60 06/10/2024 3:25 PM EST Temperature - - Respiratory Rate - - Oxygen Saturation - - Inhaled Oxygen Concentration - - Weight 50.1 kg (110 lb 6.4 oz) 06/10/2024 3:25 P M EST Height - - Body Mass Index 20.86 05/18/2024 3:53 PM EST documented in this encounter Progress Notes * Jesus Manuel Michael CNM - 06/10/2024 3:15 PM ESTAddended by: JESUS MANUEL MICHAEL on: 06/17/2024 06:22 PM Modules accepted: Orders * Jesus Manuel Michael CNM - 06/10/2024 3:15 PM EST CHIEF COMPLAINT: Consult IDENTIFIER:Roula Price is a 34 y.o. female. HPI: Roula presents to office for evaluation of lump to her left groin area. This has been there intermittently for the past 4 months, not painful, not hard or hot to touch. It does bother when wearing underwear. She is sexually active, no STD concerns but accepts GC/CT testing. Using Paragard IUD for BC. ROS: GENERAL: No malaise or fever GI: No abdominal discomfort : No dysuria, frequency or incontinence GRINDER OUTSIDE DIAMETER: No abnormal vaginal bleeding or abnormal vaginal discharge. PAST MEDICAL HISTORY: OB History No obstetric history on file. Patient Active Problem List Diagnosis Constipation Dermatitis Breast cyst, right Asthma History of depression Past Surgical History: Procedure Laterality Date OTHER SURGICAL HISTORY PROCEDURE: DENIES PREVIOUS SURGERY SOCIAL HISTORY: Social History Tobacco Use Smoking status: Never Smokeless tobacco: Never Substance Use Topics Alcohol use: No FAMILY HISTORY: Family History Problem Relation Name Age of Onset Asthma Mother depression Hyperlipidemia Father HTN Cervical cancer Sister No Known Problems Brother Asthma Brother No Known Problems Maternal Grandmother MVA Heart attack Maternal Grandfather CVA Diabetes Paternal Grandmother 30.00 thyroid, HTN, cervical, ovarian, nose cancer Hypertension Paternal Grandfather CVA, [place], DVT No Known Problems Daughter Asthma Son Ovarian cancer Aunt paternal Breast cancer Neg Hx Uterine cancer Neg Hx MEDICATIONS: There are no discontinued medications. ACTIVE MEDICATIONS: Outpatient Medications Marked as Taking for the 06/10/24 encounter (Office Visit) with Jesus Manuel Michael CNM Medication Sig Dispense Refill fluticasone furoate (Arnuity Ellipta) 100 mcg/actuation blister with device inhaler Inhale 1 puff. fluticasone HFA (FLOVENT HFA) 110 mcg/actuation inhaler Inhale 1 puff by mouth. L. acidophilus/Bifid. animalis (DAILY PROBIOTIC ORAL) Take by mouth. ondansetron ODT (ZOFRAN-ODT) 4 mg disintegrating tablet PHYSICAL EXAM: Visit Vitals BP 119/65 Pulse 60 Wt 50.1 kg (110 lb 6.4 oz) LMP 05/23/2024 (Exact Date) Comment: [place] BMI 20.86 kg/m?? OB Status Having periods Smoking Status Never BSA 1.47 m?? APPEARANCE: Alert and in no acute distress GRINDER OUTSIDE DIAMETER (FEMALE): External genitalia normal, Left groin with elongated, soft vessel-like lump that is bouncy and measuring about 1inch in size. No redness, not hardened, not hot or painful to touch. Vagina without abnormal discharge, normal cervix without lesions, polyps or tenderness, IUD stringsper os. Uterus normal size, shape, consistency, no mass or tenderness, adnexa normal in size without mass or tenderness. Cultures obtained to rule out infections. NEURO: Awake, alert and oriented x 3 LABS: NA IMPRESSION: 1. Swollen lymph nodes 2. Screen for STD (sexually transmitted disease) PLAN: Consulted with Dr. Copeland, who also examined the area and agreed that this is consistent with swollen Lymph node. Soft tissue US ordered for further evaluation and Dr. Copeland recommends referral to general surgeons for biopsy after US results. Cultures obtained to rule out vaginal infections. All questions answered, pt agrees with plan and verbalized understanding Medication and lab orders: Orders Placed This Encounter Procedures Wet prep, genital Chlamydia trachomatis and Neisseria gonorrhoeae molecular study Trichomonas vaginalis antigen US Extremity Nonvascular Limited Left Other orders: US EXTREMITY NONVASCULAR LIMITED LEFT Jesus Manuel Michael CNM documented in this encounter Plan of Treatment Upcoming Encounters Date Type Department Care Team (Late st Contact Info) Description 07/26/2024 3:30 PM EST Consult General Surgery - [address] [phone] Moo Webb DO 175 [facility] [address] [place] [address] 10/31/2024 2:15 PM EDT Office Visit Pulmonolgy - [place] [address] [phone] Candelaria Sanchez MD [address] [address] 01/09/2025 2:00 PM EDT Office Visit Adult Medicine [address] [phone] Luis Guzman MD [address] [place] [address] Scheduled Referrals Name Type Priority Associated Diagnoses Orde r Schedule Ambulatory referral to General Surgery Outpatient Referral Routine Cyst of skin and subcutaneous tissue 1 Occurrences starting 06/17/2024 until 06/17/2025 documented as of this encounter Procedures Procedure Name Priority Date/Time Associated Diagnosis Comments TRICHOMONAS VAGINALIS ANTIGEN Routine 06/10/2024 4:23 PM EST Swollen lymph nodes CHLAMYDIA TRACHOMATIS AND NEISSERIA GONORRHOEAE PCR Routine 06/10/2024 4:23 PM EST Screen for STD (sexually transmitted disease) WET PREP, GENITAL Routine 06/10/2024 4:2 3 PM EST Swollen lymph nodes documented in [...] Signed Date: 06/15/2024 16:24 ET Workstation ID: [id number] Transcribed By: Self Edit Transcribed Date: 06/15/2024 16:22 ET Procedure Note Joi Salinas MD - 06/15/2024 Ultrasound of the soft [...] Signed Date: 06/15/2024 16:24 ET Workstation ID: [id number] Transcribed By: Self Edit Transcribed Date: 06/15/2024 16:22 ET Jesus Manuel Michael CNM IMG US PROCEDURES * Trichomonas vaginalis antigen (06/10/2024 4:23 PM EST) Trichomonas vaginalis Negative Negative 06/10/2024 9:10 PM EST [facility] Swab Vaginal structure / Unknown Non-blood Collection / Unknown 06/10/2024 4:23 PM EST 06/10/2024 4:23 PM EST Jesus Manuel APONTE LAB MICROBIOLOGY - G ENERAL ORDERABLES [facility] [address] [place] [address], [place] [phone] * Chlamydia trachomatis and Neisseria gonorrhoeae molecular study (06/10/2024 4:23 PM EST) Neisseria gonorrhoeae PCR Negative Negative LAB MOLECULAR DIAGNOSTICS METHOD 06/11/2024 9:10 AM EST [facility] Chlamydia trachomatis PCR Negative Negative LAB MOLECULAR DIAGNOSTICS METHOD 06/11/2024 9:10 AM EST [facility] Swab Cervix uteri structure / Unknown Non-blood Collection / Unknown 06/10/2024 4:23 PM EST 06/10/2024 4:23 PM EST Jesus Manuel APONTE [facility] MICROBIOLOGY - G ENERAL ORDERABLES [facility] [address] [place] [address], * Wet prep, genital (06/10/2024 4:23 PM EST) Clue Cells, Wet Prep Negative Negative 06/10/2024 9:04 PM EST [facility] Yeast, Wet Prep Negative Negative 06/10/2024 9:04 PM EST [facility] Trichomonas, Wet Prep Indeterminate Negative 06/10/2024 9:04 PM EST [facility] Comment:Refer to Trichomonas antigen. Swab Vaginal structure / Unknown Non-blood Collection / Unknown 06/10/2024 4:23 PM EST 06/10/2024 4:23 PM EST Jesus Manuel Michael CNM LAB MICROBIOLOGY - G ENERAL ORDERABLES Performing Organization Address [facility]/ZIP Co de Phone Number [facility] [address] [place] [address], documented in this encounter Visit Diagnoses Diagnosis Swollen lymph nodes- Primary Enlargement of lymph nodes Screen for STD (sexually transmitted disease) Screening examination for venereal disease Cyst of skin and subcutaneous tissue Swollen lymph nodes Enlargement of lymph nodes documented in this encounter Additional Health Concerns Assessment Noted Time PHQ-9 Depression Total Score: 0 06/10/19 25 7:02 AM EST documented as of this encounter Care Teams Agency Legal Counsel Relationship Specialty Start Date End Date Luis Guzman MD [address] [place] [id number] PCP - General Internal Medicine 04/19/24 documented as of this encounter
--- OUTSIDE RECORDS SUMMARY | 2024-06-27 16:54 | XMS_ITS | Encounter Summary ---
Author Organization [facility] Address [address] [place] [address] Care Team Providers Care Farm Specialist Name Role Phone Luis Guzman MD Primary Care Provider [phone] Reason for Visit * Reason Onset Date Comments Results 06/17/2024 Encounter Details Date Type Department Care Team (Late st Contact Info) Description 06/17/2024 Telephone Obstetrics and Gynecology - [place] [address] [place] [address] Deysi Walker, [facility] [address] [place] [address] Results Social History Tobacco Use Types Packs/Day Years [...] on file documented as of this encounter Progress Notes * Karla Phelps MA - 06/20/2024 4:23 PM EST Pt is aware of results. Awaiting call from general surgeon. Told pt to call back in 1 week if she doesn't her back from anyone. PK * Airam Luis - 06/17/2024 1:04 PM EST Inform patient: ANY URGENT OR ABNORMAL RESULTS WIILL RESULT IN A CALL BACK TO THE PATIENT COMFORT. Type of test: :swab & ultrasound Date test was performed: 06/10/24 Where was the test performed: [address] [place] [id number] Who ordered this test?: Deysi Walker CNM Is the doctor here today?: Yes Can the message wait until the doctor returns?: No documented in this encounter Plan of Treatment Upcoming Encounters Date Type Department Care Team (Late st Contact Info) Description 07/26/2024 3:30 PM EST Consult General Surgery - [place] [address] [phone] Moo Webb DO [address] [address] 10/31/2024 2:15 PM EDT Office Visit Pulmonolgy - [place] [address] [phone] Candelaria Sanchez MD [address] [address] 01/09/2025 2:00 PM EDT Office Visit Adult Medicine [address] [phone] Luis Guzman MD [address] [place] [phone] documented as of this encounter Visit Diagnoses Not on filedocumented in this encounter Additional Health Concerns Assessment Noted Time PHQ-9 Depression Total Score: 0 06/10/19 25 7:02 AM EST documented as of this encounter Care Teams Farm Specialist Relationship Specialty Start Date End Date Luis Guzman MD [address] [place] [phone] PCP - General Internal Medicine 04/19/24 documented as of this encounter
--- OUTSIDE RECORDS SUMMARY | 2024-06-27 16:55 | XMS_ITS | Clinical Summary ---
Author Organization Patient Business Ser [facility] Address [address] [place] [address] Care Team Providers Care American Indian Studies Professor Name Role Phone Luis Guzman MD Primary Care Provider [phone] Allergies No known active allergies Medications Medication Sig Dispensed Refills Start Date End Date Status fluticasone furoate (Arnuity Ellipta) 100 mcg/actuation blister with device inhaler Inhale 1 puff. 06/03/2023 A ctive fluticasone HFA (FLOVENT HFA) 110 mcg/actuation inhaler Inhale 1 puff by mouth. 05/22/2023 Active ondansetron ODT (ZOFRAN-ODT) 4 mg disintegrating tablet 01/03/2023 Act barbara L. acidophilus/Bifid. animalis (DAILY PROBIOTIC ORAL) Take by mouth. Activ e ibuprofen (ADVIL,MOTRIN) 800 mg tablet TAKE 1 TABLET BY MOUTH EVERY 8 HOURS NEEDED FOR PAIN 60 tablet 1 06/15/2024 Active ibuprofen (ADVIL,MOTRIN) 800 mg tablet Take 1 tablet (800 mg total) by mouth every 8 (eight) hours if needed. for pain Active Active Problems Problem Noted Date Diagnosed Date Constipation 08/11/2023 Dermatitis 08/11/2023 Asthma 08/11/2023 History of depression 08/11/2023 Breast cyst, right 02/09/2019 Overview (08/11/2023): US Breast Uni Limited RT - 02/07/19 - History: Palpable right breast mass upper outer quadrant right breast. FINDINGS: Targeted ultrasound of area of palpable concern 1 o'clock, 2 cm from the nipple reveals oval mildly hypoechoic smoothly marginated 0.9 x 1.8 x 2.3 cm mass parallel to the skin surface. Features are strongly suggestive of fibroadenoma. Similar appearing smaller more superficial focus noted measuring approximately 0.3 x 0.5 cm. IMPRESSION: Indolent appearing mass right breast 1 o'clock 2 cm from the nipple accounting for palpable abnormality, likely fibroadenoma. Recommend follow-up ultrasound in 6 months to document stability. BI-RADS Category 3, probably benign ating Physician: BALAJI RAMIREZ MD 01/09/2020 US Breast Uni Limited RT - 01/09/20 - History: Follow-up right breast masses. Patient states palpable right breast lump for approximately 4 years. Comparison: Right breast ultrasound 02/07/19 Findings: High resolution real-time imaging of the right breast was performed, targeted to the areas of concern identified on the previous ultrasound. Again seen are two adjacent circumscribed round solid masses at 1:00, 2 cm from the nipple, unchanged in size and appearance from the previous study. The more superficial, smaller lesion lies just deep to the skin and measures 6 x 2 x 5 mm. The larger, deeper lesion measures 18 x 18 x 6 mm. Both are slightly hypoechoic to surrounding fat lobules and exhibit parallel orientation. No internal vascularity is seen by Doppler analysis. 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 One year follow-up ultrasound recommended to document ongoing stability, unless a change in the clinical breast exam dictates need for earlier follow-up. BI-RADS 3: Probably Benign Finding - Initial Short-Interval Follow-up Suggested (one year follow-up) Dictating Physician: GAUDENCIO BOTELLO MD Encounters Date Type Department Care Team Description 06/27/2024 Nurse Triage Adult Medicine [facility] - [address] [phone] Luis Guzman MD Cough; Fever 06/17/2024 Telephone Obstetrics and Gynecology - [address] [phone] Deysi Walker CNM Results 06/15/2024 4:06 PM EST - 06/15/2024 11:59 PM EST Hospital Encounter Radiology Department - [address] [phone] Swollen lymph nodes Discharge Disposition: Home or Self Care 06/10/2024 3:15 PM EST Office Visit Obstetrics and Gynecology - [address] [phone] Deysi Walker CNM Swollen lymph nodes (Primary Dx); Screen for STD (sexually transmitted disease); Cyst of skin and subcutaneous tissue 05/18/2024 3:30 PM EST Ancillary Procedure [facility] - [facility] [address] [facility] [address] [place] [address] Chest pain, unspecified from Last 3 Months Surgical History Surgery Date Site/Laterality Comments OTHER SURGICAL HISTORY PROCEDURE: DENIES PREVIOUS SURGERY Medical History Medical History Date Comments Dermatitis DX:Dermatitis Asthma DX:Asthma Constipation DX:Constipation History of depression DX:History of depression History of cyst of breast DX:His tory of cyst of breast Family History Medical History Relation Name Comments Ovarian cancer Aunt paternal No Known Problems Brother 1 Asthma Brother 2 No Known Problems Daughter Hyperlipidemia Father HTN Heart attack Maternal Grandfather CVA No Known Problems Maternal Grandmother MV A Asthma Mother depression Hypertension Paternal Grandfather CVA, [place] , DVT Diabetes Paternal Grandmother thyroid , HTN, cervical, ovarian, nose cancer Cervical cancer Sister Asthma Son Breast cancer Neg Hx Uterine cancer Neg Hx Relation Name Status Comments Aunt Alive Brother 1 Alive Brother 2 Alive Daughter Alive Father Alive Maternal Grandfather Alive Maternal Grandmother Mother Alive Paternal Grandfather Paternal Grandmother Sister Alive Son Alive Social History Tobacco Use Types Packs/Day Years [...] file Not on file Not on file Obstetrics History Last Filed Vital Signs Vital Sign Reading Time Taken Comments Blood Pressure 119/65 06/10/2024 3:25 PM EST Pulse 60 06/10/2024 3:25 PM EST Temperature - - Respiratory Rate - - Oxygen Saturation - - Inhaled Oxygen Concentration - - Weight 50.1 kg (110 lb 6.4 oz) 06/10/2024 3:25 P M EST Height 154.9 cm (5' 1 ) 05/18/2024 3:53 PM EST Body Mass Index 20.86 05/18/2024 3:53 PM EST Plan of Treatment Upcoming Encounters Date Type Department Care Team (Late st Contact Info) Description 07/26/2024 3:30 PM EST Consult General Surgery - [place] [address] [phone] Moo Webb, [address] [address] 10/31/2024 2:15 PM EDT Office Visit Pulmonolgy - [place] [address] [phone] Candelaria Sanchez MD [address] [address] 01/09/2025 2:00 PM EDT Office Visit Adult Medicine [facility] [place] [address] [place] [phone] Luis Guzman MD [address] [place] [phone] Health Maintenance Due Date Last Done Comments Pneumococcal Vaccine: Pediatrics (0 to 5 Years) and At-Risk Patients (6 to 64 Years) (1 of 2 - PCV) 02/10/1998 Hepatitis B Vaccines (1 of 3 - 19+ 3-dose series) 02/10/2011 COVID-19 Vaccine (3 - Pfizer risk series) 05/13/2021 04/15/2021, 03/08/2021 HIV Screening 03/18/2022 Hepatitis C Screening 03/18/2022 Social Influencers of Health Screening 09/10/2023 09/09/2022 Influenza Vaccine (#1) 2024 0, 03/28/2019, 01/14/2017, Additional history exists Depression Screening 06/10/2025 06/10/2024, 09/10/19 DTaP,Tdap,and Td Vaccines (3 - Td or Tdap) 06/25/2025 06/25/2015, 04/26/2014 Cervical Cancer Screening: Pap Smear 02/23/2026 02/23/2023, 02/23/2023 Cholesterol Screening (Lipid Panel) 09/10/2027 09/09/2022 MMR Vaccines Aged Out 04/26/2014 No longer eligi ble based on patient's age to complete this topic HIB Vaccines Aged Out No longer eligi ble based on patient's age to complete this topic HPV Vaccines Aged Out No longer eligi ble based on patient's age to complete this topic Hepatitis A Vaccines Aged Out No long er eligible based on patient's age to complete this topic IPV Vaccines Aged Out No longer eligi ble based on patient's age to complete this topic Meningococcal ACWY Vaccine Aged Out N o longer eligible based on patient's age to complete this topic RSV Immunization Patients Under 20 months Aged Out No longer eligible based on patient's age to complete this topic Varicella Vaccines Aged Out No longer eligible based on patient's age to complete this topic Procedures Procedure Name Priority Date/Time Associated Diagnosis Comments US EXTREMITY NONVASCULAR LIMITED LEFT Routine 06/15/2024 4:11 PM EST Swollen lymph nodes TRICHOMONAS VAGINALIS ANTIGEN Routine 06/10/2024 4:23 PM EST Swollen lymph nodes CHLAMYDIA TRACHOMATIS AND NEISSERIA GONORRHOEAE PCR Routine 06/10/2024 4:23 PM EST Screen for STD (sexually transmitted disease) WET PREP, GENITAL Routine 06/10/2024 4:2 3 PM EST Swollen lymph nodes TRANSTHORACIC ECHOCARDIOGRAM (TTE) COMPLETE Routine 05/18/2024 3:54 PM EST Chest pain, unspecified HM PAP SMEAR Routine 02/23/2023 LIPID PANEL Routine 09/09/2022 from Last 3 Months or Most Recently Relevant to Health Maintenance Results * US Extremity Nonvascular Limited Left [...] Signed Date: 06/15/2024 16:24 ET Workstation ID: [id number] Transcribed By: Self Edit Transcribed Date: 06/15/2024 [...] Signed Date: 06/15/2024 16:24 ET Workstation ID: [id number] Transcribed By: Self Edit Transcribed Date: 06/15/2024 16:22 ET Authorizing Provider Result [facility] US PROCEDURES * Trichomonas vaginalis antigen (06/10/2024 4:23 PM EST) Trichomonas vaginalis Negative Negative 06/10/2024 9:10 PM EST [facility] Swab Vaginal structure / Unknown Non-blood Collection / Unknown 06/10/2024 4:23 PM EST 06/10/2024 4:23 PM EST Deysi Ayerses [facility] MICROBIOLOGY - G ENERAL ORDERABLES [facility] [address] [place] [address], * Chlamydia trachomatis and Neisseria gonorrhoeae molecular study (06/10/2024 4:23 PM EST) Neisseria gonorrhoeae PCR Negative Negative LAB MOLECULAR DIAGNOSTICS METHOD 06/11/2024 9:10 AM EST [facility] Chlamydia trachomatis PCR Negative Negative LAB MOLECULAR DIAGNOSTICS METHOD 06/11/2024 9:10 AM [facility] Swab Cervix uteri structure / Unknown Non-blood Collection / Unknown 06/10/2024 4:23 PM EST 06/10/2024 4:23 PM EST Deysi Walker [facility] MICROBIOLOGY - G ENERAL ORDERABLES [facility] [address] [place] [address], [place] [phone] * Wet prep, genital (06/10/2024 4:23 PM EST) Clue Cells, Wet Prep Negative Negative 06/10/2024 9:04 PM EST [facility] Yeast, Wet Prep Negative Negative 06/10/2024 9:04 PM EST [facility] Trichomonas, Wet Prep Indeterminate Negative 06/10/2024 9:04 PM EST [facility] Comment:Refer to Trichomonas antigen. Swab Vaginal structure / Unknown Non-blood Collection / Unknown 06/10/2024 4:23 PM EST 06/10/2024 4:23 PM EST Deysi Cindy Walker [facility] MICROBIOLOGY - G ENERAL ORDERABLES [facility] [address] [place] [address], [place] [phone] * TRANSTHORACIC ECHOCARDIOGRAM (TTE) COMPLETE (05/18/2024 3:54 PM EST) Left Atrium Minor [place] 4.3 cm CV PACS Left Atrium Major [place] 4.3 cm CV PACS LA Area Sys (A2C) 14 cm2 CV PACS LA Area Sys (A4C) 14 cm2 CV PACS LA Volume (BP) 35 mL CV PACS RA Area 15.0 cm2 CV PACS RA 2D Volume 38 mL CV PACS AV Mean Gradient 3 mmHg CV PACS Ao VTI 24.6 cm CV PACS AV Peak Evan 1.1 m/s CV PACS AV Peak Gradient 5 mmHg CV PACS AV Area Continuity Equation 2.4 cm2 CV PACS AV Area Peak Velocity 2.6 cm2 CV PACS Aortic Sinus Valsalva 2.6 cm CV PACS Ascending Aorta 2.4 cm CV PACS IVC Proximal 1.7 cm CV PACS IVSD 0.7 0.6 - 0.9 cm CV PACS LVIDD 4.2 3.8 - 5.2 cm CV PACS LVIDS 2.8 2.2 - 3.5 cm CV PACS LVOT Diameter 1.9 cm CV PACS LVOT Mean Grad 2 mmHg CV PACS LVOT Peak VTI 20.8 cm CV PACS LVOT Mean Evan 0.7 m/s CV PACS LVOT Peak Evan 1.0 m/s CV PACS LVOT Peak Gradient 4 mmHg CV PACS LVPWD 0.7 0.6 - 0.9 cm CV PACS MV E' Tissue Velocity Lateral 18 cm/s CV PACS MV E' Tissue Velocity Septal 12 cm/s CV PACS LVOT Area 2.8 cm2 CV PACS LVOT Stroke Volume 59 mL CV PACS E Wave Deceleration Time 169 119 - 242 ms CV PACS MV Peak A Evan 0.53 m/s CV PACS MV Peak E Evan 0.95 m/s CV PACS PV Peak Velocity 0.9 m/s CV PACS PV Peak Gradient 3 mmHg CV PACS RV Diastolic Basal Dimension 3.4 2.5 - 4.1 cm CV PACS RV S' 14 cm/s CV PACS TAPSE 25 mm CV PACS TR Peak Velocity 1.81 m/s CV PACS TR Peak Gradient 13 mmHg CV PACS E/E' Ratio Septal 8 CV PACS E/E' Ratio Averaged 7 CV PACS Relative Wall Thickness ratio 0.33 CV PACS LVOT:AV VTI Index 0.85 CV PACS FS 33 % CV PACS LV Mass 2D 85 g CV PACS LVOT flow 198 mL/s CV PACS AV Velocity Ratio 0.91 CV PACS E/A Ratio 1.8 CV PACS E/E' Ratio Lateral 5 CV PACS BSA 1.48 m2 CV PACS LA Volume Index (BP) 24 mL/m2 CV PACS LVIDD Index 2.84 cm/m2 CV PACS LVIDS Index 1.89 cm/m2 CV PACS LV Mass Index 2D 57 44 - 88 g/m2 CV PACS LVOT Stroke Index 40 mL/m2 CV PACS RA 2D Volume Index 26 15 - 27 mL/m2 CV PACS ALEJANDRO Index (VTI) 1.62 cm2/m2 CV PACS ALEJANDRO Index (Pk Evan) 1.76 cm2/m2 CV PACS Ascending Aorta Index 1.62 cm/m2 CV PACS Right Ventricular Peak Systolic Pressure 16 mmHg CV PACS Est. RA Pressure 3 mmHg CV PACS Anatomical Region Laterality Modality Ultrasound Narrative 05/18/2024 5:19 PM EST ?Left ventricle cavity size is normal.Left ventricle wall thickness is normal. Left ventricular systolic function is in the normal range with an ejection fraction of 55-60%. ??Normal left ventricular diastolic function. ?? A false tendon visualized at the apical area (normal variation). ?Right ventricle cavity is normal. Right ventricular systolic function is normal. ?No significant valvular abnormality. ?Right ventricular systolic pressure is normal and estimated at 16 mmHg. Left Ventricle Left ventricle cavity size is normal. Wall thickness is normal. Systolic function is normal with an ejection fraction of 55-60%. There are no regional LV wall motion abnormalities. There is no diastolic dysfunction. Right Ventricle Right ventricle cavity appears normal. Systolic function is normal. Left Atrium Left atrium cavity size is normal. Left atrium volume index is normal. Right Atrium Right atrium cavity is normal. IVC/SVC RA pressures is estimated to be 3 mmHg (IVC diameter <21 mm and decreases >50% during inspiration). Mitral Valve Mitral valve structure is normal. There is trace regurgitation. There is no evidence of mitral valve stenosis. Tricuspid Valve Tricuspid valve structure is normal. There is trace regurgitation. There is no evidence of tricuspid valve stenosis. The RVSP is estimated at 16 mmHg. Aortic Valve The aortic valve is trileaflet with normal structure and function. There is no regurgitation or stenosis. Pulmonic Valve Visualized portions of the pulmonic valve appear normal. There is trace pulmonic valve regurgitation. There is no evidence of pulmonic valve stenosis. Ascending Aorta The aorta appears normal in size. Pericardium Pericardium appears normal. Study Details Overall the study quality was adequate. Ayde Garcia MD CV ECHO PROCEDURES * Pap Smear (02/23/2023) Pap smear normal Historical Provider [facility] * Lipid panel (09/09/2022) LDL/HDL Ratio 3 Triglycerides 51 mg/dL Cholesterol 213 mg/dL HDL 82 mg/dL LDL Cholesterol 121 mg/dL Blood Venous blood specimen / Unknown Historical Provider LAB BLOOD ORDERAB LES from Last 3 Months or Most Recently Relevant to Health Maintenance Care Teams American Indian Studies Professor Relationship Specialty Start Date End Date Luis Guzman MD [address] [place] [phone] PCP - General Internal Medicine 04/19/24
--- OUTSIDE RECORDS SUMMARY | 2024-06-27 16:55 | XMS_ITS | Encounter Summary ---
Author Organization [facility] Address [address] [place] [address] Care Team Providers Care Upholsterer Inside Name Role Phone Luis Guzman MD Primary Care Provider [phone] Reason for Visit * Reason Onset Date Comments Cough 06/27/2024 Fever 06/27/2024 Encounter Details Date Type Department Care Team (Late st Contact Info) Description 06/27/2024 Nurse Triage Adult Medicine [address] [phone] Luis Guzman MD [address] [place] [phone] Cough; Fever Social History Tobacco Use Types Packs/Day Years [...] as of this encounter Progress Notes * Nadine Wagoner RN - 06/27/2024 8:50 AM EST Called pt via AMN and interpretor # [id number]. She was instructed to go to the ER for further evaluation and treatment. She is in agreement with this plan and states she will go to [facility] ER. Reason for Disposition Severe difficulty breathing (e.g., struggling for each breath, speaks in single words) Answer Assessment - Initial Assessment Questions 1. ONSET: When did the cough begin? She has had a cough for 2 weeks but has gotten worse since 06/23/24 2. SEVERITY: How bad is the cough today? 03/10 3. SPUTUM: Describe the color of your sputum (e.g., none, dry cough; clear, white, yellow, green) Clear to white 4. HEMOPTYSIS: Are you coughing up any blood? If Yes, ask: How much? (e.g., flecks, streaks, tablespoons, etc.) No hemoptysis 5. DIFFICULTY BREATHING: Are you having difficulty breathing? If Yes, ask: How bad is it? (e.g., mild, moderate, severe) - MILD: No SOB at rest, mild SOB with walking, speaks normally in sentences, can lie down, no retractions, pulse < 100. - MODERATE: SOB at rest, SOB with minimal exertion and prefers to sit, cannot lie down flat, speaksin phrases, mild retractions, audible wheezing, pulse 100-120. - SEVERE: Very SOB at rest, speaks in single words, struggling to breathe, sitting hunched forward,retractions, pulse > 120. She has asthma and is using her asthma pump frequently with minimal effect. She states she is short of breath at rest. 6. FEVER: Do you have a fever? If Yes, ask: What is your temperature, how was it measured, and when did it start? She is having fevers at night. She does not have a thermometer 7. CARDIAC HISTORY: Do you have any history of heart disease? (e.g., heart attack, congestive heart failure) No. 8. LUNG HISTORY: Do you have any history of lung disease? (e.g., pulmonary embolus, asthma, emphysema) She has a history of asthma 9. PE RISK FACTORS: Do you have a history of blood clots? (or: recent major surgery, recent prolonged travel, bedridden) No PE risk factors 10. OTHER SYMPTOMS: Do you have any other symptoms? (e.g., runny nose, wheezing, chest pain) She is also reporting a runny nose, chest pain 11. : Is there any chance you are ? When was your last menstrual period? No. Her LMP was last week. 12. TRAVEL: Have you traveled out of the country in the last month? (e.g., travel history, exposures) She took a home Covid test 2 weeks ago and it was negative Protocols used: Cough - Acute [id number] * Tricia Barnard - 06/27/2024 8:37 AM EST Patient call requires triage: Symptoms patient is presenting: COUGH BODY ACHES FEVER HEAD AND EARS HURT HAVING pt ALSO HAS ASTHMAAND IS HAVING TROUBLE BREATHING. How long has patient had these symptoms?: 2 DAYS For ALL patients calling to schedule any appointment (routine, sick visit, follow up, consult, etc.) in the outpatient setting please ask the following questions: Do you have fever of higher than 101, sore throat with difficulty swallowing or severe shortness ofbreath? no If YES to any of these above symptoms, send a message to triage and do not book. Red dot. If no, an audio or video visit should be booked. Have you had close contact with someone with Coronavirus in the last 14 days? no Have you traveled abroad? no Have you traveled recently to another state outside of [place], [place], [place], [place], [place], [place]? no o If yes, did you quarantine for 14 days or have a negative covid test? no If yes to any of the above, patient is not to be scheduled in office until after 14 day quarantine or negative covid test. If pain or injury related was it due to an accident at work or from a motor vehicle accident? If yes, date of accident/Injury: No If yes, gather 3rd libertarian insurance information Third Democrat Information: not applicable PCP: Luis Guzman MD Payor: [employer] / Plan[facility] / Product Type: *No Product type* / documented in this encounter Plan of Treatment Upcoming Encounters Date Type Department Care Team (Late st Contact Info) Description 07/26/2024 3:30 PM EST Consult General Surgery - [address] [place] [phone] Moo Webb DO 175 [facility] [address] [place] [address] 10/31/2024 2:15 PM EDT Office Visit Pulmonolgy - [place] [address] [facility] [address] [place] [address] Candelaria Sanchez MD 175 [facility] [address] [place] [address] 01/09/2025 2:00 PM EDT Office Visit Adult Medicine [facility] [address] [place] [phone] Luis Guzman MD [address] [place] [phone] documented as of this encounter Visit Diagnoses Not on filedocumented in this encounter Additional Health Concerns Assessment Noted Time PHQ-9 Depression Total Score: 0 06/10/19 25 7:02 AM EST documented as of this encounter Care Teams Upholsterer Inside Relationship Specialty Start Date End Date Luis Guzman MD [address] [place] [phone] PCP - General Internal Medicine 04/19/24 documented as of this encounter
== END 2024-06-27 13:31 | disposition home or self-care (01) ==
PROVIDERS: Physician Assistant Medical; Emergency Provider Emergency Medicine; PCP Internal Medicine
DX: J10.1 Influenza due to other identified influenza virus with other respiratory manifestations (principal); R00.0 Tachycardia, unspecified; R06.02 Shortness of breath; R05.9 Cough, unspecified; Z03.818 Encounter for observation for suspected exposure to other biological agents ruled out
CPT/HCPCS: 0241U; 71046; 80053; 83735; 84484; 85025; 93005; 99283

== ENCOUNTER → 2024-06-27 11:17 | Outpatient (BNV) | payer OTHER, SELFPAY | PROVIDERS: Emergency Provider Emergency Medicine; PCP Internal Medicine; Visit Provider Internal Medicine | DX: R07.9 Chest pain, unspecified (principal); R06.02 Shortness of breath | CPT/HCPCS: 93010 ==

== ENCOUNTER → 2024-06-27 11:17 | Outpatient (BNV) | payer OTHER, SELFPAY | PROVIDERS: PCP Internal Medicine; Visit Provider Radiology Diagnostic Radiology | DX: R06.02 Shortness of breath (principal); R07.9 Chest pain, unspecified | CPT/HCPCS: 71046 ==